=== PATIENT | male | born 1970 | race African-American/Black ===

== ENCOUNTER 2023-11-03 19:20 | Observation (INO) | payer OTHER ==
[2023-11-03] MEDS ORDERED: Haloperidol Lactate 5 MG/ML VIAL ONE (20:10)
[2023-11-03] MEDS ORDERED: Midazolam HCl 2 mg/2 ml Vial ONE (20:10)
[2023-11-03 20:38] LABS: Hematocrit 46.8 % (42.0-52.0); Hemoglobin 16.1 g/dL (14.0-18.0); Manual Diff?? YES; Mean Corpuscular HGB CONC 34.4 g/dL (32.0-36.0); Mean Corpuscular Hemoglobin 31.1 pg (27.0-31.0); Mean Corpuscular Volume 90.5 fl (78.0-98.0); Mean Platelet Volume 10.3 fL (7.4-10.4); Platelet Count 228 10x3/uL (130-400); RBC Distribution Width 13.3 % (11.5-14.5); Red Blood Cell (RBC) Count 5.17 mill/uL (4.70-6.10); White Blood Cell (WBC) Count 8.9 10x3/uL (4.8-10.8)
[2023-11-03 20:45] LABS: Delete Auto Diff?? YES
[2023-11-03 21:06] LABS: CellaVision Operator ID lab.sh2; Eosinophils 3 % (0-10); Lymphocytes 38 % (21-51); Monocytes 8 % (0-10); Neutrophil 51 % (42-75); Platelet Adequacy Comment Platelets Normal; Polychromasia SLIGHT = 2-3 cells HPF (0-2); Smudge Cells 17.8 %; Target Cells SLIGHT = 2-5 cells HPF (0-1); Total Cell Count 101
[2023-11-03 21:11] LABS: ALT (SGPT) 16 U/L (8-55); AST (SGOT) 29 U/L (5-34); Acetaminophen Less than 10 mcg/mL (10.0-30.0); Albumin 4.3 g/dL (3.5-5.0); Alcohol Less than 10.0 mg/dL (Less than 10); Alkaline Phosphatase 93 U/L (40-110); Anion Gap 16 mmol/L (10-20); BUN (Urea Nitrogen) 16 mg/dL (8.4-25.7); Bilirubin, Total 0.4 mg/dL (0.2-1.2); Calc. Creatinine Clearance 0 mL/min (70-130); Calcium 9.9 mg/dL (7.8-10.44); Carbon Dioxide 21 mmol/L (22-29); Chloride 104 mmol/L (98-107); Estimated GFR 64; Globulin 4.3 g/dL (2.4-3.5); Glucose 77 mg/dL (70-105); Potassium 4.3 mmol/L (3.5-5.1); Protein, Total 8.6 g/dL (6.0-8.3); Salicylate Less than 8.0 mg/dL (15.0-30.0); Sodium 137 mmol/L (136-145)
[2023-11-03 22:27] LABS: Amphetamine Detected (NotDetected); Barbiturates Screen Not Detected (NotDetected); Benzodiazepine Screen Not Detected (NotDetected); Cocaine Metabolite Screen Detected (NotDetected); Methadone Not Detected (NotDetected); Methamphetamine Detected (NotDetected); Opiate Screen Not Detected (NotDetected); Oxycodone Screen Not Detected (NotDetected); Phencyclidine (PCP) Detected (NotDetected); THC/Cannabinoid Screen Detected (NotDetected); Tricyclic Screen Not Detected (NotDetected)
[2023-11-03 22:29] LABS: Bacteria/HPF None Seen HPF (None Seen); Bilirubin Negative (Negative); Blood, Urine Negative (Negative); CAUTI Indications for Culture Alt mental st,lethar; Clarity Clear (Clear); Glucose, Urine (Dipstick) Normal (Negative); Ketone, Urine Negative (Negative); Leukocyte Negative Leu/uL (Negative); Nitrite Negative (Negative); Protein, Urine (Dipstick) Negative (Neg-Trace); RBC/HPF 0-3 HPF (0-3); Specific Gravity, Urine 1.012 (1.002-1.036); Squamous Epithelial None Seen HPF (0-3); Urobilinogen Normal mg/dL (Less than 2); WBC/HPF 0-3 HPF (0-3); pH, Urine 6.5 (5.0-9.0)
[2023-11-03 22:32] LABS: Sperm/HPF Rare HPF (None Seen)
[2023-11-03 22:33] LABS: Urine Culture Reflex No No
[2023-11-03] MEDS ORDERED: hydrALAZINE 20 MG/ML VIAL ONE (22:36)
[2023-11-03] MEDS ORDERED: Acetaminophen 325 MG TAB PO PRN (23:00)
[2023-11-03] MEDS ORDERED: Ondansetron ODT 4 MG TAB SL PRN (23:00)
[2023-11-03] MEDS ORDERED: Ondansetron PF 4 MG/2 ML Vial IVP PRN (23:00)
[2023-11-03 23:07] LABS: Troponin I 0.087 ng/mL (< 0.028)
[2023-11-03 23:15] VITALS: BMI 21.1
[2023-11-03 23:30] LABS: HIV (1/2) Antibody/Antigen Non-Reactive (NonReactive); HIV 1/2 INDEX 0.36 S/CO (<1.00)
[2023-11-04] MEDS ORDERED: hydrALAZINE 20 MG/ML VIAL SLOW IVP PRN (00:04)
[2023-11-04 02:10] LABS: #Basophils 0.1 thou/uL (0.0-0.2); #Eosinphils 0.2 thou/uL (0.0-0.7); #Monocytes 0.7 thou/uL (0.11-0.59); #Neutrophils 3.8 thou/uL (1.40-6.50); %Basophils 0.6 % (0.0-1.0); %Eosinophils 1.9 % (0.0-10.0); %Monocytes 8.8 % (0.0-10.0); %Neutrophils 45.6 % (42.0-75.0); Hematocrit 46.8 % (42.0-52.0); Hemoglobin 15.7 g/dL (14.0-18.0); Mean Corpuscular HGB CONC 33.5 g/dL (32.0-36.0); Mean Corpuscular Hemoglobin 30.7 pg (27.0-31.0); Mean Corpuscular Volume 91.6 fl (78.0-98.0); Mean Platelet Volume 10.1 fL (7.4-10.4); Platelet Count 210 10x3/uL (130-400); RBC Distribution Width 13.6 % (11.5-14.5); Red Blood Cell (RBC) Count 5.11 mill/uL (4.70-6.10); White Blood Cell (WBC) Count 8.3 10x3/uL (4.8-10.8)
[2023-11-04 02:37] LABS: Troponin I 0.085 ng/mL (< 0.028)
[2023-11-04 02:56] LABS: ALT (SGPT) 19 U/L (8-55); AST (SGOT) 30 U/L (5-34); Alkaline Phosphatase 88 U/L (40-110); Anion Gap 16 mmol/L (10-20); BUN (Urea Nitrogen) 16 mg/dL (8.4-25.7); Bilirubin, Total 0.5 mg/dL (0.2-1.2); Calc. Creatinine Clearance 75 mL/min (70-130); Calcium 9.7 mg/dL (7.8-10.44); Carbon Dioxide 21 mmol/L (22-29); Chloride 105 mmol/L (98-107); Estimated GFR 75; Globulin 3.9 g/dL (2.4-3.5); Glucose 84 mg/dL (70-105); Magnesium 1.9 mg/dL (1.6-2.6); Potassium 3.6 mmol/L (3.5-5.1); Protein, Total 7.9 g/dL (6.0-8.3); Sodium 138 mmol/L (136-145)
[2023-11-04 06:46] VITALS: TEMP 98.9
[2023-11-04] MEDS ORDERED: Ondansetron ODT 4 MG TAB PO PRN (07:22)
[2023-11-04] MEDS ORDERED: Electrolyte Replacement Protocol 1 EACH FS SCH (07:30)
[2023-11-04 07:55] LABS: #Basophils 0.1 thou/uL (0.0-0.2); #Eosinphils 0.2 thou/uL (0.0-0.7); #Monocytes 0.7 thou/uL (0.11-0.59); #Neutrophils 3.3 thou/uL (1.40-6.50); %Basophils 0.8 % (0.0-1.0); %Eosinophils 2.7 % (0.0-10.0); %Lymphocytes 40.5 % (21.0-51.0); %Monocytes 9.6 % (0.0-10.0); %Neutrophils 46.1 % (42.0-75.0); Hematocrit 46.8 % (42.0-52.0); Hemoglobin 15.6 g/dL (14.0-18.0); Mean Corpuscular HGB CONC 33.3 g/dL (32.0-36.0); Mean Corpuscular Hemoglobin 30.4 pg (27.0-31.0); Mean Corpuscular Volume 91.1 fl (78.0-98.0); Mean Platelet Volume 10.3 fL (7.4-10.4); Platelet Count 216 10x3/uL (130-400); RBC Distribution Width 13.6 % (11.5-14.5); Red Blood Cell (RBC) Count 5.14 mill/uL (4.70-6.10); White Blood Cell (WBC) Count 7.1 10x3/uL (4.8-10.8)
[2023-11-04] MEDS ORDERED: Thiamine HCl 200 MG/2 ML VIAL SLOW IVP SCH (08:00)
[2023-11-04] MEDS ORDERED: Magnesium 2 GM/50 ML(in water) 2 GM in Premix 1 BAG IVPB SCH (08:00)
[2023-11-04 08:16] LABS: ALT (SGPT) 16 U/L (8-55); AST (SGOT) 29 U/L (5-34); Albumin 4.1 g/dL (3.5-5.0); Alkaline Phosphatase 88 U/L (40-110); Anion Gap 13 mmol/L (10-20); BUN (Urea Nitrogen) 19 mg/dL (8.4-25.7); Bilirubin, Direct 0.2 mg/dL (0.1-0.3); Bilirubin, Total 0.4 mg/dL (0.2-1.2); Calc. Creatinine Clearance 72 mL/min (70-130); Calcium 9.5 mg/dL (7.8-10.44); Carbon Dioxide 23 mmol/L (22-29); Chloride 105 mmol/L (98-107); Estimated GFR 72; Globulin 3.8 g/dL (2.4-3.5); Glucose 94 mg/dL (70-105); Phosphorus 3.3 mg/dL (2.3-4.7); Potassium 3.8 mmol/L (3.5-5.1); Protein, Total 7.9 g/dL (6.0-8.3); Sodium 137 mmol/L (136-145)
[2023-11-04 08:22] VITALS: BP 160/96
[2023-11-04] MEDS ORDERED: Multivit, Therapeutic 1 TAB PO SCH (09:00)
[2023-11-04] MEDS ORDERED: Folic Acid 1 MG TAB PO SCH (09:00)
[2023-11-04 11:39] LABS: Syphilis Antibody INDETERMINATE (Nonreactive)
[2023-11-04 11:45] LABS: Syphilis Antibody INDETERMINATE (Nonreactive)
[2023-11-04 11:45] LABS: Syphilis Antibody Index 4.62 S/CO (<1.00 Non-Reactive)
[2023-11-04 11:46] LABS: Syphilis Antibody Index 7.94 S/CO (<1.00 Non-Reactive)
[2023-11-07] MEDS ORDERED: Thiamine 100 MG TAB PO SCH (08:00)
== END 2023-11-04 08:49 | disposition left against medical advice (07) ==
LOC: ERS 19:20 → ERHOLD 22:55
PROVIDERS: ADMIT Student in an Organized Health Care Education/Training Program; ATTEND Student in an Organized Health Care Education/Training Program
DX: R41.82 Altered mental status, unspecified (principal); I11.0 Hypertensive heart disease with heart failure; I50.20 Unspecified systolic (congestive) heart failure; J45.909 Unspecified asthma, uncomplicated; I10 Essential (primary) hypertension; J44.9 Chronic obstructive pulmonary disease, unspecified; I27.20 Pulmonary hypertension, unspecified; F17.210 Nicotine dependence, cigarettes, uncomplicated; F15.10 Other stimulant abuse, uncomplicated; Z88.1 Allergy status to other antibiotic agents; Z88.2 Allergy status to sulfonamides
CPT/HCPCS: 36415; 36416; 70450; 71045; 80053; 80306; 80307; 81001; 82248; 83605; 83735; 83880; 84100; 84443; 84484; 85025; 86593; 86780; 87040; 87389; 93005; 96361; 96374; 96375; G0378; J0360; J1630; J2250

== ENCOUNTER 2023-11-25 07:00 | Inpatient (IN) | payer OTHER ==
[2023-11-25] MEDS ORDERED: Bicillin LA 2.4 MILL.UNITS/4 ML SYRINGE ONE (07:46)
[2023-11-25 08:06] LABS: #Basophils 0.1 thou/uL (0.0-0.2); #Eosinphils 0.1 thou/uL (0.0-0.7); #Monocytes 0.7 thou/uL (0.11-0.59); %Basophils 0.8 % (0.0-1.0); %Eosinophils 1.2 % (0.0-10.0); %Lymphocytes 34.8 % (21.0-51.0); %Monocytes 9.7 % (0.0-10.0); %Neutrophils 53.4 % (42.0-75.0); Mean Corpuscular HGB CONC 32.6 g/dL (32.0-36.0); Mean Corpuscular Hemoglobin 30.8 pg (27.0-31.0); Mean Corpuscular Volume 94.5 fl (78.0-98.0); Mean Platelet Volume 10.1 fL (7.4-10.4); Platelet Count 293 10x3/uL (130-400); RBC Distribution Width 13.3 % (11.5-14.5); Red Blood Cell (RBC) Count 4.87 mill/uL (4.70-6.10); White Blood Cell (WBC) Count 7.5 10x3/uL (4.8-10.8)
[2023-11-25 08:34] LABS: ALT (SGPT) 19 U/L (8-55); AST (SGOT) 26 U/L (5-34); Alkaline Phosphatase 91 U/L (40-110); Anion Gap 12 mmol/L (10-20); BUN (Urea Nitrogen) 14 mg/dL (8.4-25.7); Bilirubin, Total 0.4 mg/dL (0.2-1.2); Calc. Creatinine Clearance 0 mL/min (70-130); Calcium 9.2 mg/dL (7.8-10.44); Carbon Dioxide 24 mmol/L (22-29); Chloride 104 mmol/L (98-107); Estimated GFR 61; Globulin 4.1 g/dL (2.4-3.5); Glucose 80 mg/dL (70-105); Magnesium 1.9 mg/dL (1.6-2.6); Potassium 3.8 mmol/L (3.5-5.1); Protein, Total 8.1 g/dL (6.0-8.3); Sodium 136 mmol/L (136-145)
[2023-11-25 08:38] LABS: Troponin I 0.057 ng/mL (< 0.028)
[2023-11-25 08:40] LABS: Bacteria/HPF None Seen HPF (None Seen); Bilirubin Negative (Negative); Blood, Urine Negative (Negative); CAUTI Indications for Culture Alt mental st,lethar; Clarity Clear (Clear); Glucose, Urine (Dipstick) Normal (Negative); Ketone, Urine Negative (Negative); Leukocyte Negative Leu/uL (Negative); Nitrite Negative (Negative); Protein, Urine (Dipstick) Negative (Neg-Trace); RBC/HPF 0-3 HPF (0-3); Specific Gravity, Urine 1.013 (1.002-1.036); Squamous Epithelial None Seen HPF (0-3); Urobilinogen Normal mg/dL (Less than 2); WBC/HPF 0-3 HPF (0-3); pH, Urine 6.5 (5.0-9.0)
[2023-11-25 08:41] LABS: Sperm/HPF 2+ HPF (None Seen); Urine Culture Reflex No No
[2023-11-25 08:45] LABS: Amphetamine Detected (NotDetected); Barbiturates Screen Not Detected (NotDetected); Benzodiazepine Screen Not Detected (NotDetected); Cocaine Metabolite Screen Not Detected (NotDetected); Methadone Not Detected (NotDetected); Methamphetamine Detected (NotDetected); Opiate Screen Not Detected (NotDetected); Oxycodone Screen Not Detected (NotDetected); Phencyclidine (PCP) Not Detected (NotDetected); THC/Cannabinoid Screen Detected (NotDetected); Tricyclic Screen Not Detected (NotDetected)
[2023-11-25 11:35] LABS: Troponin I 0.064 ng/mL (< 0.028)
[2023-11-25 11:45] LABS: Syphilis Antibody INDETERMINATE (Nonreactive); Syphilis Antibody Index 3.03 S/CO (<1.00 Non-Reactive)
[2023-11-25 15:08] LABS: Troponin I 0.061 ng/mL (< 0.028)
[2023-11-26] MEDS: Acetaminophen 325 MG TAB PO PRN ×2 (02:13→21:46)
[2023-11-26] MEDS ORDERED: Ketorolac Tromethamine 30 MG (1 mL) VIAL IVP SCH (03:30)
[2023-11-26 07:05] LABS: #Basophils 0.1 thou/uL (0.0-0.2); #Eosinphils 0.2 thou/uL (0.0-0.7); #Neutrophils 4.7 thou/uL (1.40-6.50); %Basophils 0.8 % (0.0-1.0); %Eosinophils 1.9 % (0.0-10.0); %Lymphocytes 29.3 % (21.0-51.0); %Monocytes 11.4 % (0.0-10.0); %Neutrophils 56.4 % (42.0-75.0); Hematocrit 46.6 % (42.0-52.0); Hemoglobin 15.5 g/dL (14.0-18.0); Mean Corpuscular HGB CONC 33.3 g/dL (32.0-36.0); Mean Corpuscular Hemoglobin 31.1 pg (27.0-31.0); Mean Corpuscular Volume 93.4 fl (78.0-98.0); Mean Platelet Volume 9.9 fL (7.4-10.4); Platelet Count 274 10x3/uL (130-400); RBC Distribution Width 13.3 % (11.5-14.5); Red Blood Cell (RBC) Count 4.99 mill/uL (4.70-6.10); White Blood Cell (WBC) Count 8.3 10x3/uL (4.8-10.8)
[2023-11-26] MEDS ORDERED: Sodium Bicarbonate 2.5 MEQ/5 ML SDV ONE (10:01)
[2023-11-26 12:35] LABS: CSF Source CSF; Clarity Clear (Clear); Tube # 4
[2023-11-26] MEDS ORDERED: Carvedilol 25 MG TAB PO SCH (13:00)
[2023-11-26] MEDS: hydrOXYzine 25 MG TAB PO PRN ×2 (13:13→21:45)
[2023-11-26 14:06] LABS: Anion Gap 11 mmol/L (10-20); BUN (Urea Nitrogen) 20 mg/dL (8.4-25.7); Calc. Creatinine Clearance 68 mL/min (70-130); Calcium 9.4 mg/dL (7.8-10.44); Carbon Dioxide 22 mmol/L (22-29); Chloride 104 mmol/L (98-107); Estimated GFR 63; Glucose 103 mg/dL (70-105); Potassium 4.4 mmol/L (3.5-5.1); Sodium 133 mmol/L (136-145)
[2023-11-26 14:33] LABS: HBCM Index 0.08 S/CO (0-0.79); HIV (1/2) Antibody/Antigen Non-Reactive (NonReactive); HIV 1/2 INDEX 0.13 S/CO (<1.00); Hep A IgM AB Non-Reactive S/CO (NonReactive); Hep A IgM S/CO 0.13 S/CO (0-0.79); Hep B Surf Ag Non-Reactive S/CO (NonReactive); Hepatitis B Core IgM Abs Non-Reactive S/CO (NonReactive)
[2023-11-26 14:52] LABS: Hep C IgG Ab Reflex HepC Qnt S/CO (NonReactive); Hep C Index 10.77 S/CO (0-0.79)
[2023-11-26] MEDS: Carvedilol 25 MG TAB PO SCH (16:39)
[2023-11-26] MEDS ORDERED: Atorvastatin Calcium 40 MG TAB PO SCH (21:00)
[2023-11-27 04:59] LABS: Anion Gap 12 mmol/L (10-20); BUN (Urea Nitrogen) 25 mg/dL (8.4-25.7); Calc. Creatinine Clearance 74 mL/min (70-130); Calcium 8.8 mg/dL (7.8-10.44); Carbon Dioxide 19 mmol/L (22-29); Chloride 105 mmol/L (98-107); Estimated GFR 70; Glucose 93 mg/dL (70-105); Sodium 132 mmol/L (136-145)
[2023-11-27 07:27] VITALS: BMI 25.0
[2023-11-27] MEDS: Carvedilol 25 MG TAB PO SCH (08:25)
[2023-11-27] MEDS ORDERED: Aspirin 81 mg Enteric Coated Tablet PO SCH (09:00)
[2023-11-27] MEDS: hydrOXYzine 25 MG TAB PO PRN ×2 (10:39→12:36)
[2023-11-27] MEDS ORDERED: Betamethasone 0.1% Cream 15 GM TUBE TOP SCH ×2 (11:30→21:00)
[2023-11-27 12:17] VITALS: BP 135/76; TEMP 97.8
[2023-11-28 21:39] LABS: HCV RNA, log10 5.907 (.); Hep C PCR-Quant 808000 IU/mL (.)
== END 2023-11-27 15:36 | disposition left against medical advice (07) | DRG 868 ==
LOC: ERS 07:00 → ERHOLD 09:43 → EEVIPCON 09:43 → 2SW 20:38 → OBSVTOIN 11-26 16:51
PROVIDERS: ADMIT Internal Medicine; ATTEND Family Medicine
PROC: 009U3ZX Drainage of Spinal Canal, Percutaneous Approach, Diagnostic (ICD-10-PCS; principal; 2023-11-26)
PROC: B01B1ZZ Fluoroscopy of Spinal Cord using Low Osmolar Contrast (ICD-10-PCS; 2023-11-26)
DX: A53.9 Syphilis, unspecified (principal); E87.1 Hypo-osmolality and hyponatremia; I50.32 Chronic diastolic (congestive) heart failure; Z59.00 Homelessness unspecified; N17.9 Acute kidney failure, unspecified; F19.10 Other psychoactive substance abuse, uncomplicated; R07.9 Chest pain, unspecified; Z88.2 Allergy status to sulfonamides; Z88.1 Allergy status to other antibiotic agents; I11.0 Hypertensive heart disease with heart failure; J44.9 Chronic obstructive pulmonary disease, unspecified; F17.210 Nicotine dependence, cigarettes, uncomplicated; I25.10 Atherosclerotic heart disease of native coronary artery without angina pectoris; I27.20 Pulmonary hypertension, unspecified; Z98.890 Other specified postprocedural states; B19.20 Unspecified viral hepatitis C without hepatic coma
CPT/HCPCS: 36415; 62270; 71045; 80048; 80053; 80074; 80306; 81001; 83735; 83880; 84484; 85025; 86592; 86593; 86780; 87389; 87522; 89051; 93005; 94760; J0561; J1885

== ENCOUNTER 2024-01-11 06:52 | Inpatient (IN) | payer OTHER ==
[2024-01-11 08:07] LABS: #Basophils 0.1 thou/uL (0.0-0.2); #Eosinphils 0.2 thou/uL (0.0-0.7); #Monocytes 1.2 thou/uL (0.11-0.59); #Neutrophils 4.1 thou/uL (1.40-6.50); %Basophils 0.8 % (0.0-1.0); %Eosinophils 1.8 % (0.0-10.0); %Lymphocytes 34.6 % (21.0-51.0); %Monocytes 14.3 % (0.0-10.0); %Neutrophils 48.3 % (42.0-75.0); Hematocrit 43.5 % (42.0-52.0); Hemoglobin 14.1 g/dL (14.0-18.0); Mean Corpuscular HGB CONC 32.4 g/dL (32.0-36.0); Mean Corpuscular Hemoglobin 30.5 pg (27.0-31.0); Mean Platelet Volume 10.7 fL (7.4-10.4); Platelet Count 217 10x3/uL (130-400); RBC Distribution Width 12.8 % (11.5-14.5); Red Blood Cell (RBC) Count 4.63 mill/uL (4.70-6.10); White Blood Cell (WBC) Count 8.5 10x3/uL (4.8-10.8)
[2024-01-11 08:43] LABS: ALT (SGPT) 26 U/L (8-55); AST (SGOT) 31 U/L (5-34); Albumin 3.6 g/dL (3.5-5.0); Alkaline Phosphatase 74 U/L (40-110); Anion Gap 12 mmol/L (10-20); BUN (Urea Nitrogen) 19 mg/dL (8.4-25.7); Bilirubin, Total 0.5 mg/dL (0.2-1.2); Calc. Creatinine Clearance 0 mL/min (70-130); Carbon Dioxide 23 mmol/L (22-29); Chloride 104 mmol/L (98-107); Estimated GFR 71; Globulin 3.4 g/dL (2.4-3.5); Glucose 153 mg/dL (70-105); Potassium 3.5 mmol/L (3.5-5.1); Sodium 135 mmol/L (136-145)
[2024-01-11 08:57] LABS: Troponin I 0.028 ng/mL (< 0.028)
[2024-01-11] MEDS ORDERED: Ondansetron PF 4 MG/2 ML Vial ONE (09:09)
[2024-01-11] MEDS ORDERED: Ketorolac Tromethamine 30 MG (1 mL) VIAL ONE (09:09)
[2024-01-11] MEDS ORDERED: Acetaminophen 500 MG TAB ONE (09:09)
[2024-01-11 12:22] LABS: Troponin I 0.031 ng/mL (< 0.028)
[2024-01-11] MEDS ORDERED: Ondansetron ODT 4 MG TAB PO PRN (13:38)
[2024-01-11] MEDS ORDERED: Ondansetron PF 4 MG/2 ML Vial IVP PRN (13:38)
[2024-01-11] MEDS ORDERED: Acetaminophen 650 MG Suppository PR PRN (13:38)
[2024-01-11] MEDS ORDERED: Morphine 2 MG/ML VIAL SLOW IVP PRN (13:42)
[2024-01-11] MEDS ORDERED: Morphine 4 MG/ML VIAL SLOW IVP PRN (13:42)
[2024-01-11 15:43] LABS: Magnesium 1.8 mg/dL (1.6-2.6)
[2024-01-11 15:54] LABS: Troponin I 0.032 ng/mL (< 0.028)
[2024-01-11] MEDS ORDERED: Carvedilol 25 MG TAB ONE (17:07)
[2024-01-11] MEDS: Carvedilol 25 MG TAB PO SCH (17:16)
[2024-01-11 20:09] LABS: Troponin I 0.028 ng/mL (< 0.028)
[2024-01-11] MEDS ORDERED: Enoxaparin 60 MG (0.6 mL) SYRINGE ONE (20:43)
[2024-01-11] MEDS ORDERED: Atorvastatin Calcium 40 MG TAB ONE (20:43)
[2024-01-11] MEDS ORDERED: Famotidine 20 MG TAB ONE (20:43)
[2024-01-11 21:01] VITALS: BMI 22.0
[2024-01-11] MEDS ORDERED: Enoxaparin 80 MG (0.8 mL) SYRINGE ONE (21:54)
[2024-01-11] MEDS: Atorvastatin Calcium 40 MG TAB PO SCH (21:57)
[2024-01-11] MEDS: Famotidine 20 MG TAB PO SCH (21:58)
[2024-01-11] MEDS: Enoxaparin 80 MG (0.8 mL) SYRINGE SC SCH (22:29)
[2024-01-12 04:05] LABS: #Basophils 0.1 thou/uL (0.0-0.2); #Eosinphils 0.2 thou/uL (0.0-0.7); #Monocytes 0.9 thou/uL (0.11-0.59); #Neutrophils 2.6 thou/uL (1.40-6.50); %Basophils 0.8 % (0.0-1.0); %Eosinophils 3.1 % (0.0-10.0); %Lymphocytes 50.5 % (21.0-51.0); %Monocytes 11.6 % (0.0-10.0); Hematocrit 42.6 % (42.0-52.0); Hemoglobin 13.9 g/dL (14.0-18.0); Mean Corpuscular HGB CONC 32.6 g/dL (32.0-36.0); Mean Platelet Volume 10.6 fL (7.4-10.4); Platelet Count 209 10x3/uL (130-400); RBC Distribution Width 13.1 % (11.5-14.5); Red Blood Cell (RBC) Count 4.63 mill/uL (4.70-6.10); White Blood Cell (WBC) Count 7.5 10x3/uL (4.8-10.8)
[2024-01-12 04:32] LABS: ALT (SGPT) 22 U/L (8-55); AST (SGOT) 22 U/L (5-34); Albumin 3.4 g/dL (3.5-5.0); Alkaline Phosphatase 78 U/L (40-110); Anion Gap 10 mmol/L (10-20); BUN (Urea Nitrogen) 23 mg/dL (8.4-25.7); Bilirubin, Total 0.2 mg/dL (0.2-1.2); Calc. Creatinine Clearance 71 mL/min (70-130); Calcium 8.8 mg/dL (7.8-10.44); Carbon Dioxide 26 mmol/L (22-29); Chloride 105 mmol/L (98-107); Estimated GFR 67; Globulin 3.1 g/dL (2.4-3.5); Glucose 88 mg/dL (70-105); Potassium 3.8 mmol/L (3.5-5.1); Protein, Total 6.5 g/dL (6.0-8.3); Sodium 137 mmol/L (136-145)
[2024-01-12] MEDS ORDERED: Carvedilol 25 MG TAB ONE (09:12)
[2024-01-12] MEDS ORDERED: Aspirin 81 mg Enteric Coated Tablet ONE (09:12)
[2024-01-12] MEDS ORDERED: Enoxaparin 80 MG (0.8 mL) SYRINGE ONE (09:12)
[2024-01-12] MEDS ORDERED: Famotidine 20 MG TAB ONE (09:12)
[2024-01-12] MEDS: Aspirin 81 mg Enteric Coated Tablet PO SCH (12:13)
[2024-01-12] MEDS: Lisinopril 5 MG TAB PO SCH (20:42)
[2024-01-13 06:13] LABS: #Basophils 0.1 thou/uL (0.0-0.2); #Eosinphils 0.2 thou/uL (0.0-0.7); #Monocytes 0.9 thou/uL (0.11-0.59); #Neutrophils 2.7 thou/uL (1.40-6.50); %Basophils 0.7 % (0.0-1.0); %Eosinophils 2.8 % (0.0-10.0); %Lymphocytes 44.9 % (21.0-51.0); %Monocytes 13.3 % (0.0-10.0); %Neutrophils 38.2 % (42.0-75.0); Hematocrit 42.5 % (42.0-52.0); Hemoglobin 13.9 g/dL (14.0-18.0); Mean Corpuscular HGB CONC 32.7 g/dL (32.0-36.0); Mean Corpuscular Hemoglobin 30.6 pg (27.0-31.0); Mean Corpuscular Volume 93.6 fl (78.0-98.0); Mean Platelet Volume 11.1 fL (7.4-10.4); Platelet Count 211 10x3/uL (130-400); RBC Distribution Width 12.9 % (11.5-14.5); Red Blood Cell (RBC) Count 4.54 mill/uL (4.70-6.10); White Blood Cell (WBC) Count 7.1 10x3/uL (4.8-10.8)
[2024-01-13 06:33] LABS: Anion Gap 10 mmol/L (10-20); BUN (Urea Nitrogen) 19 mg/dL (8.4-25.7); Calc. Creatinine Clearance 77 mL/min (70-130); Carbon Dioxide 26 mmol/L (22-29); Chloride 105 mmol/L (98-107); Estimated GFR 73; Glucose 107 mg/dL (70-105); Potassium 3.9 mmol/L (3.5-5.1); Sodium 137 mmol/L (136-145)
[2024-01-13] MEDS: Acetaminophen 325 MG TAB PO PRN (07:07)
[2024-01-13] MEDS: Lisinopril 10 MG TAB PO SCH (08:24)
[2024-01-13] MEDS: FLU VACC QS2023-24(6MOS UP)/PF 60 MCG/0.5 ML SYRINGE IM ONE (08:24)
[2024-01-13 11:28] VITALS: BP 125/69; TEMP 98.5
== END 2024-01-13 14:38 | DRG 281 ==
LOC: EEVIPCON 06:52 → ERS 06:52 → SUATTDRO 06:52 → 2SW 13:28 → ERHOLD 13:33 → 2SW 01-12 11:56 → OBSVTOIN 01-12 14:25
PROVIDERS: ADMIT Family Medicine; ATTEND Family Medicine
DX: I21.4 Non-ST elevation (NSTEMI) myocardial infarction (principal); I42.9 Cardiomyopathy, unspecified; I50.20 Unspecified systolic (congestive) heart failure; I11.0 Hypertensive heart disease with heart failure; F17.210 Nicotine dependence, cigarettes, uncomplicated; Z88.1 Allergy status to other antibiotic agents; Z79.82 Long term (current) use of aspirin; Z79.899 Other long term (current) drug therapy
CPT/HCPCS: 36415; 71045; 80048; 80053; 83735; 84100; 84484; 85025; 93005; 93306; 96372; 96374; 96375; G0378; J1650; J1885; J2405

== ENCOUNTER 2024-12-23 22:03 | Emergency (ER) | payer OTHER ==
[2024-12-23] MEDS ORDERED: Acetaminophen 500 MG TAB ONE (22:45)
[2024-12-23] MEDS ORDERED: Ketorolac Tromethamine 30 MG (1 mL) VIAL ONE (22:45)
== END 2024-12-23 23:20 ==
LOC: ERS 22:03
DX: S43.401A Unspecified sprain of right shoulder joint, initial encounter (principal); R22.1 Localized swelling, mass and lump, neck; J44.9 Chronic obstructive pulmonary disease, unspecified; I10 Essential (primary) hypertension; E78.00 Pure hypercholesterolemia, unspecified; Z87.891 Personal history of nicotine dependence; Z55.0 Illiteracy and low-level literacy; Z79.899 Other long term (current) drug therapy; Z79.82 Long term (current) use of aspirin; W19.XXXA Unspecified fall, initial encounter
CPT/HCPCS: 96372; 99283; J1885